=== PATIENT | female | born 1955 | race Caucasian/White ===

== ENCOUNTER → 2023-04-19 14:52 | Outpatient (REF) | payer OTHER, SELFPAY | LOC: HWRAD 14:52 | PROVIDERS: ATTENDING PHYSICIAN Family Medicine; FAMILY PHYSICIAN Family Medicine | DX: M89.9 Disorder of bone, unspecified (principal) | CPT/HCPCS: 72190 ==

== ENCOUNTER → 2024-10-14 14:01 | Outpatient (REF) | payer OTHER, SELFPAY | LOC: WDC 14:01 | PROVIDERS: ATTENDING PHYSICIAN Family Medicine | DX: Z12.31 Encounter for screening mammogram for malignant neoplasm of breast (principal) | CPT/HCPCS: 77063; 77067 ==

== ENCOUNTER → 2024-10-20 08:59 | Outpatient (REF) | payer OTHER, SELFPAY | LOC: WDC 08:59 | PROVIDERS: ATTENDING PHYSICIAN Family Medicine | DX: R92.8 Other abnormal and inconclusive findings on diagnostic imaging of breast (principal) | CPT/HCPCS: 76642 ==

== ENCOUNTER → 2024-10-28 11:20 | Outpatient (REF) | payer OTHER, SELFPAY | LOC: HWRAD 11:20 | PROVIDERS: ATTENDING PHYSICIAN Family Medicine | DX: R10.9 Unspecified abdominal pain (principal) | CPT/HCPCS: 76700 ==